=== PATIENT | female | born 1960 | race Two or more races ===

== ENCOUNTER 2023-03-12 09:30 | Emergency (ER) | payer MEDICAID ==
[~2023-03-12] VITALS: Ht 154.9 cm; Wt 58.1 kg
[2023-03-12 10:13] VITALS: BP 163/91; TEMP 98.7
[2023-03-12] MEDS ORDERED: AMOX/CLAVULANATE 875 MG TABLET PO ONE (10:30)
[2023-03-12] MEDS ORDERED: IBUPROFEN 600 MG TABLET PO ONE (10:30)
[2023-03-12] MEDS ORDERED: AMOX-430 PO (10:32)
[2023-03-12] MEDS ORDERED: IBUPROFEN 600 MG TABLET ONE (10:34)
[2023-03-12] MEDS ORDERED: AMOX/CLAVULANATE 875 MG TABLET ONE (10:34)
[2023-03-12 10:39] VITALS: O2SAT 99
== END 2023-03-12 10:40 | disposition home or self-care (01) ==
LOC: ER 09:47
DX: H66.92 Otitis media, unspecified, left ear (principal); I10 Essential (primary) hypertension